=== PATIENT | female | born 2000 | race Two or more races ===

== ENCOUNTER 2021-11-30 12:56 | Emergency (ER) | payer OTHER ==
[~2021-11-30] VITALS: Ht 167.6 cm; Wt 62.0 kg
[2021-11-30] MEDS ORDERED: CHOL400T33 PO (13:10)
[2021-11-30 13:11] VITALS: BP 124/68
[2021-11-30] MEDS ORDERED: ACETAMINOPHEN 500 MG TABLET PO ONE (13:15)
[2021-11-30 13:26] LABS: COVID AG,FIA SOURCE NASOPHARYNGEAL
[2021-11-30 13:57] LABS: INFLUENZA TYPE A NEGATIVE FOR TYPE A (NEGATIVE); INFLUENZA TYPE B NEGATIVE FOR TYPE B (NEGATIVE)
== END 2021-11-30 14:25 | disposition home or self-care (01) ==
LOC: EMS 13:00
DX: J06.9 Acute upper respiratory infection, unspecified (principal); Z20.822 Contact with and (suspected) exposure to COVID-19; Z28.310 Unvaccinated for COVID-19
CPT/HCPCS: 87804; 99283

== ENCOUNTER 2024-05-15 08:11 | Emergency (ER) | payer OTHER ==
[~2024-05-15] VITALS: Ht 165.1 cm; Wt 59.0 kg
[~2024-05-15 08:11] MED LIST: CHOL400T33 PO
[2024-05-15 08:15] VITALS: BP 115/68; PULSE 86; RESP 18; O2SAT 99
[2024-05-15] MEDS ORDERED: FERR325T23 PO (08:15)
[2024-05-15] MEDS ORDERED: CHOL500043 PO (08:15)
[2024-05-15] MEDS: ACETAMINOPHEN/CODEINE 300-30 MG TABLET PO ONE (09:45)
[2024-05-15] MEDS: GuaiFENesin/D-METHORPHAN [SUGAR-FREE] 200-20MG/10 ML SYRUP UDCUP PO ONE (09:45)
[2024-05-15] MEDS: IBUPROFEN 200 MG TABLET PO ONE (09:46)
[2024-05-15] MEDS: CEPHALEXIN MONOHYDRATE 500 MG CAPSULE PO ONE (09:46)
[2024-05-15] MEDS ORDERED: GUAIFDM PO (09:51)
[2024-05-15] MEDS ORDERED: IBUP-1554 PO (09:51)
[2024-05-15] MEDS ORDERED: ACET-2080 PO (09:51)
[2024-05-15] MEDS ORDERED: AZIT250T9 PO (09:51)
== END 2024-05-15 10:29 | disposition home or self-care (01) ==
LOC: EMS 08:14
DX: H66.91 Otitis media, unspecified, right ear (principal); J06.9 Acute upper respiratory infection, unspecified
CPT/HCPCS: 99284; Z7502; Z7610